=== PATIENT | female | born 2000 ===

== ENCOUNTER 2021-02-11 13:14 | Emergency (ER) | payer OTHER, MEDICAID, SELFPAY ==
[2021-02-11 14:45] VITALS: BP 108/57; PULSE 95; RESP 18; TEMP 36.7; O2SAT 100
[2021-02-11 17:26] VITALS: BP 97/62; PULSE 91; RESP 16; TEMP 36.6; O2SAT 99
--- NOTE | 2021-02-11 19:51 | PC.NURSE ---
Patient called at 1806 and at 195 and no answer. Patient not found in waiting room or outside.
== END 2021-02-12 03:05 | disposition left against medical advice (07) ==
LOC: ANHED 20:01
DX: Z53.21 Procedure and treatment not carried out due to patient leaving prior to being seen by health care provider (principal)
CPT/HCPCS: 99199